=== PATIENT | female | born 1945 | race Caucasian/White ===

== ENCOUNTER 2017-12-13 11:32 | Outpatient (REF) | payer MEDICARE, OTHER, SELFPAY ==
[2017-12-13 21:43] LABS: Anion Gap 8.4 mmol/L (3-11); BUN 12 mg/dL (7-18); CO2 28.6 mmol/L (21.0-32.0); CREATININE 1.06 mg/dL (0.55-1.02); Calcium 10.3 mg/dL (8.5-10.1); Chloride 106 mmol/L (98-107); Estimated GFR 51.25 (mL/min/1.73m2); Glucose 101 mg/dL (70-100); Potassium 4.3 mmol/L (3.5-5.1); Sodium 143 mmol/L (136-145)
== END 2017-12-13 11:52 ==
LOC: NCHCN 11:32
PROVIDERS: PCP Nurse Practitioner Family; Visit Provider Nurse Practitioner Family
DX: R73.09 Other abnormal glucose (principal)
CPT/HCPCS: 80048

== ENCOUNTER 2019-02-13 20:57 | Outpatient (REF) | payer MEDICARE, OTHER, SELFPAY ==
[2019-02-13 21:10] LABS: ALT 39 U/L (14-59); AST 32 U/L (15-37); Albumin 4.3 g/dL (3.4-5.0); Alkaline Phosphatase 76 U/L (46-116); Anion Gap 10.8 mmol/L (3-11); BUN 11 mg/dL (7-18); Bilirubin, Total 0.4 mg/dL (0.2-1.0); CO2 28.2 mmol/L (21.0-32.0); CREATININE 1.05 mg/dL (0.55-1.02); Calcium 9.7 mg/dL (8.5-10.1); Calculated LDL 116 mg/dL; Chloride 105 mmol/L (98-107); Cholesterol 193 mg/dL (50-200); Estimated GFR 51.52 (mL/min/1.73m2); Glucose 104 mg/dL (70-100); HDL Cholesterol 41 mg/dL (40-60); Potassium 4.1 mmol/L (3.5-5.1); Sodium 144 mmol/L (136-145); Total Protein 7.7 g/dL (6.4-8.2); Triglyceride 184 mg/dL (30-150)
[2019-02-13 21:16] LABS: Hemoglobin A1C 6.3 % (4.5-6.2)
== END 2019-02-13 21:17 ==
LOC: NCHCN 20:57
PROVIDERS: PCP Nurse Practitioner Family; Visit Provider Nurse Practitioner Family
DX: I10 Essential (primary) hypertension (principal); E78.5 Hyperlipidemia, unspecified; R73.09 Other abnormal glucose
CPT/HCPCS: 80053; 80061; 83036

== ENCOUNTER 2020-08-20 12:39 | Outpatient (REF) | payer MEDICARE, OTHER, SELFPAY ==
[2020-08-20 20:54] LABS: ALT 45 U/L (14-59); AST 27 U/L (15-37); Albumin 4.3 g/dL (3.4-5.0); Alkaline Phosphatase 79 U/L (46-116); Anion Gap 9.1 mmol/L (3-11); BUN 17 mg/dL (7-18); Bilirubin, Total 0.8 mg/dL (0.2-1.0); CO2 28.9 mmol/L (21.0-32.0); Calcium 9.9 mg/dL (8.5-10.1); Chloride 106 mmol/L (98-107); Cholesterol 151 mg/dL (<200); Estimated GFR 54.35 (mL/min/1.73m2); Glucose 88 mg/dL (74-106); Potassium 4.3 mmol/L (3.5-5.1); Sodium 144 mmol/L (136-145); Total Protein 7.5 g/dL (6.4-8.2); Triglyceride 130 mg/dL (<150)
[2020-08-20 20:55] LABS: Hemoglobin A1C 6.1 % (<5.7)
[2020-08-20 21:04] LABS: Calculated LDL 75 mg/dL (<100); HDL Cholesterol 50 mg/dL (40-60)
== END 2020-08-20 12:40 | disposition home or self-care (01) ==
LOC: NCHCN 12:39
PROVIDERS: PCP Nurse Practitioner Family; Visit Provider Family Medicine
DX: R73.03 Prediabetes (principal); I10 Essential (primary) hypertension; E78.5 Hyperlipidemia, unspecified; N28.9 Disorder of kidney and ureter, unspecified
CPT/HCPCS: 80053; 80061; 83036

== ENCOUNTER 2021-07-14 13:34 | Outpatient (REF) | payer MEDICARE, OTHER, SELFPAY ==
[2021-07-14 16:45] LABS: HCT 41.4 % (36.0-46.0); HGB 13.8 g/dL (11.2-15.7); MCH 31.4 pg (27.0-33.0); MCHC 33.3 % (32.0-36.0); MCV 94.1 fL (80-95); MPV 10.4 fL (8.0-11.0); Platelet Count 201 10^3/uL (130-400); RDW 12.5 % (11.7-14.6); RDW-SD 43.8 fL; WBC 6.38 10^3/uL (4.4-10.8)
[2021-07-14 17:02] LABS: Hemoglobin A1C 6.3 % (<5.7)
[2021-07-14 17:16] LABS: ALT 39 U/L (14-59); AST 26 U/L (15-37); Albumin 4.2 g/dL (3.4-5.0); Alkaline Phosphatase 82 U/L (46-116); Anion Gap 7.7 mmol/L (3-11); BUN 16 mg/dL (7-18); Bilirubin, Total 0.7 mg/dL (0.2-1.0); CO2 28.3 mmol/L (21.0-32.0); Calcium 9.1 mg/dL (8.5-10.1); Chloride 106 mmol/L (98-107); Glucose 107 mg/dL (74-106); Potassium 4.2 mmol/L (3.5-5.1); Sodium 142 mmol/L (136-145); Total Protein 7.2 g/dL (6.4-8.2)
== END 2021-07-14 13:35 | disposition home or self-care (01) ==
LOC: NCHCN 13:34
PROVIDERS: PCP Nurse Practitioner Family; Visit Provider Nurse Practitioner Family
DX: R73.03 Prediabetes (principal); I10 Essential (primary) hypertension; E55.9 Vitamin D deficiency, unspecified; N28.9 Disorder of kidney and ureter, unspecified; M85.80 Other specified disorders of bone density and structure, unspecified site; Z13.0 Encounter for screening for diseases of the blood and blood-forming organs and certain disorders involving the immune mechanism
CPT/HCPCS: 80053; 82306; 85027; 83036

== ENCOUNTER 2022-01-12 15:17 | Outpatient (REF) | payer MEDICARE, OTHER, SELFPAY ==
[2022-01-12 17:43] LABS: Hemoglobin A1C 6.3 % (<5.7)
[2022-01-12 18:03] LABS: Vitamin D 25 Total 29.2 ng/mL (30-100)
== END 2022-01-12 15:18 | disposition home or self-care (01) ==
LOC: NCHCN 15:17
PROVIDERS: PCP Nurse Practitioner Family; Visit Provider Nurse Practitioner Family
DX: R73.03 Prediabetes (principal); E55.9 Vitamin D deficiency, unspecified
CPT/HCPCS: 82306; 83036

== ENCOUNTER 2022-12-14 18:16 | Outpatient (REF) | payer MEDICARE, OTHER, SELFPAY ==
[2022-12-14 22:08] LABS: Anion Gap 8.2 mmol/L (3-11); BUN 17 mg/dL (7-18); CO2 26.8 mmol/L (21.0-32.0); CREATININE 1.1 mg/dL (0.55-1.02); Calcium 10.4 mg/dL (8.5-10.1); Chloride 104 mmol/L (98-107); Glucose 99 mg/dL (74-106); Potassium 4.2 mmol/L (3.5-5.1); Sodium 139 mmol/L (136-145)
== END 2022-12-14 18:17 | disposition home or self-care (01) ==
LOC: NCHCN 18:16
PROVIDERS: PCP Nurse Practitioner Family; Visit Provider Nurse Practitioner Family
DX: I10 Essential (primary) hypertension (principal)
CPT/HCPCS: 80048

== ENCOUNTER → 2023-03-18 12:53 | Outpatient (BNVA) | payer MEDICARE, OTHER, SELFPAY | PROVIDERS: PCP Nurse Practitioner Family; Referring Provider Nurse Practitioner Family; Visit Provider Podiatrist | DX: I73.89 Other specified peripheral vascular diseases (principal); M79.675 Pain in left toe(s); M79.674 Pain in right toe(s); L60.3 Nail dystrophy; R09.89 Other specified symptoms and signs involving the circulatory and respiratory systems; R20.8 Other disturbances of skin sensation; L65.9 Nonscarring hair loss, unspecified; R60.0 Localized edema | CPT/HCPCS: 11721 ==

== ENCOUNTER → 2023-06-03 13:01 | Outpatient (BNVA) | payer MEDICARE, OTHER, SELFPAY | PROVIDERS: PCP Nurse Practitioner Family; Referring Provider Nurse Practitioner Family; Visit Provider Podiatrist | DX: I73.89 Other specified peripheral vascular diseases (principal); M79.674 Pain in right toe(s); M79.675 Pain in left toe(s); L60.3 Nail dystrophy; I73.9 Peripheral vascular disease, unspecified; B35.1 Tinea unguium | CPT/HCPCS: 11721 ==

== ENCOUNTER 2023-09-28 11:31 | Outpatient (REF) | payer MEDICARE, OTHER, SELFPAY ==
[2023-09-28 15:42] LABS: HCT 42.3 % (36.0-46.0); HGB 13.8 g/dL (11.2-15.7); MCH 31.4 pg (27.0-33.0); MCHC 32.6 % (32.0-36.0); MCV 96 fL (80-95); MPV 10.2 fL (8.0-11.0); Platelet Count 179 10^3/uL (130-400); RBC 4.39 10^6/uL (3.93-5.22); RDW 13.1 % (11.7-14.6); RDW-SD 46.8 fL; WBC 5.69 10^3/uL (4.4-10.8)
[2023-09-28 15:56] LABS: ALT 34 U/L (14-59); AST 25 U/L (15-37); Albumin 4.1 g/dL (3.4-5.0); Alkaline Phosphatase 73 U/L (46-116); Anion Gap 6.2 mmol/L (3-11); BUN 12 mg/dL (7-18); Bilirubin, Total 0.82 mg/dL (0.2-1.0); CO2 29.8 mmol/L (21.0-32.0); Calcium 9.6 mg/dL (8.5-10.1); Calculated LDL 71 mg/dL (<100); Chloride 107 mmol/L (98-107); Cholesterol 142 mg/dL (<200); Estimated GFR 58.39 (mL/min/1.73m2); Glucose 114 mg/dL (74-106); HDL Cholesterol 49 mg/dL (40-60); Potassium 4.3 mmol/L (3.5-5.1); Sodium 143 mmol/L (136-145); Total Protein 7.3 g/dL (6.4-8.2); Triglyceride 111 mg/dL (<150)
[2023-09-28 16:53] LABS: Hemoglobin A1C 6.2 % (<5.7)
== END 2023-09-28 11:32 | disposition home or self-care (01) ==
LOC: NCHCN 11:31
PROVIDERS: PCP Nurse Practitioner Family; Visit Provider Nurse Practitioner Family
DX: I10 Essential (primary) hypertension (principal); E78.5 Hyperlipidemia, unspecified; R73.03 Prediabetes
CPT/HCPCS: 80053; 80061; 85027; 83036

== ENCOUNTER 2024-08-31 18:40 | Outpatient (REF) | payer MEDICARE, OTHER, SELFPAY ==
[2024-08-31 16:01] LABS: Hemoglobin A1C 6.2 % (<5.7)
[2024-08-31 16:10] LABS: Calculated LDL 74 mg/dL (<100); Cholesterol 145 mg/dL (<200); HDL Cholesterol 46 mg/dL (>or=50); TSH 2.12 uIU/mL (0.36-3.74); Triglyceride 129 mg/dL (<150)
== END 2024-08-31 18:41 | disposition home or self-care (01) ==
LOC: NCHCN 18:40
PROVIDERS: PCP Nurse Practitioner Family; Visit Provider Nurse Practitioner Family
DX: E78.5 Hyperlipidemia, unspecified (principal); R73.03 Prediabetes
CPT/HCPCS: 80061; 83036; 84443

== ENCOUNTER 2025-03-05 19:12 | Outpatient (REF) | payer MEDICARE, OTHER, SELFPAY | END 2025-03-05 19:13 | disposition home or self-care (01) | LOC: NCHCN 19:12 | PROVIDERS: PCP Nurse Practitioner Family; Visit Provider Nurse Practitioner Family | DX: I10 Essential (primary) hypertension (principal) | CPT/HCPCS: 82043; 82570 ==